=== PATIENT | female | born 1990 | race Caucasian/White ===

== ENCOUNTER 2021-07-08 00:36 | Day surgery (SDC) | payer BC ==
[2021-07-08] MEDS ORDERED: hydrALAZINE 20 MG/ML VIAL SLOW IVP PRN (00:56)
[2021-07-08] MEDS ORDERED: Lactated Ringer's 1,000 ML IV SCH ×2 (01:00)
[2021-07-08 01:01] VITALS: BMI 28.6
[2021-07-08 06:58] LABS: #Eosinphils 0.2 10x3/uL (0.0-0.5); #Monocytes 0.8 10x3/uL (0.0-1.1); #Neutrophils 13.7 10x3/uL (1.5-8.4); %Basophils 0.2 % (0.0-2.0); %Monocytes 4.3 % (0.0-10.0); %Neutrophils 77.8 % (40.0-75.0); Hemoglobin 11.9 g/dL (12.0-15.5); Mean Corpuscular HGB CONC 32.3 g/dL (32.0-36.0); Mean Corpuscular Hemoglobin 30.7 pg (27.0-33.0); Mean Corpuscular Volume 95.1 fl (81.6-98.3); Mean Platelet Volume 10.8 fl (7.4-10.4); Platelet Count 244 10x3/uL (150-450); RBC Distribution Width 13.8 % (11.5-14.5); Red Blood Cell (RBC) Count 3.87 10x6/uL (3.90-5.03); White Blood Cell (WBC) Count 17.7 10x3/uL (3.5-10.5)
[2021-07-08 07:22] LABS: ALT (SGPT) 11 U/L (8-55); AST (SGOT) 11 U/L (5-34); Alkaline Phosphatase 63 U/L (40-110); Anion Gap 11 mmol/L (10-20); BUN (Urea Nitrogen) 12 mg/dL (7.0-18.7); Bilirubin, Total 0.3 mg/dL (0.2-1.2); Calc. Creatinine Clearance 120 mL/min (70-130); Calcium 8.9 mg/dL (7.8-10.44); Carbon Dioxide 18 mmol/L (22-29); Chloride 113 mmol/L (98-107); Globulin 3.1 g/dL (2.4-3.5); Glucose 95 mg/dL (70-105); Potassium 4.4 mmol/L (3.5-5.1); Protein, Total 6.1 g/dL (6.0-8.3); Sodium 138 mmol/L (136-145)
== END 2021-07-08 07:50 | disposition home or self-care (01) ==
LOC: CSHLD/OP 00:36
PROVIDERS: ATTEND Obstetrics & Gynecology
DX: O99.891 Other specified diseases and conditions complicating pregnancy (principal); M54.5 Low back pain; Z3A.20 20 weeks gestation of pregnancy; Z79.899 Other long term (current) drug therapy; Z88.1 Allergy status to other antibiotic agents; Z88.2 Allergy status to sulfonamides; Z88.5 Allergy status to narcotic agent; Z88.8 Allergy status to other drugs, medicaments and biological substances
CPT/HCPCS: 36415; 80053; 85025; 96360; 96361; 99283

== ENCOUNTER 2021-10-31 14:53 | Day surgery (SDC) | payer BC ==
[2021-10-31 15:53] VITALS: BMI 33.3
[2021-10-31] MEDS ORDERED: hydrALAZINE 20 MG/ML VIAL SLOW IVP PRN (16:10)
[2021-10-31] MEDS ORDERED: Fioricet 325/50/40 mg Tablet PO PRN (16:17)
== END 2021-10-31 18:00 | disposition home or self-care (01) ==
LOC: CSHLD/OP 14:53
PROVIDERS: ATTEND Obstetrics & Gynecology
DX: O99.891 Other specified diseases and conditions complicating pregnancy (principal); R03.0 Elevated blood-pressure reading, without diagnosis of hypertension; O21.0 Mild hyperemesis gravidarum; Z3A.38 38 weeks gestation of pregnancy; Z88.1 Allergy status to other antibiotic agents; Z88.2 Allergy status to sulfonamides; Z88.5 Allergy status to narcotic agent; Z88.6 Allergy status to analgesic agent
CPT/HCPCS: 99282

== ENCOUNTER 2021-11-07 22:58 | Inpatient (IN) | payer BC ==
[2021-11-07 23:24] VITALS: BMI 34.0
[2021-11-08] MEDS ORDERED: hydrALAZINE 20 MG/ML VIAL SLOW IVP PRN ×2 (00:01→02:24)
[2021-11-08] MEDS ORDERED: Acetaminophen 500 MG TAB PO PRN (02:24)
[2021-11-08] MEDS ORDERED: Lidocaine 1% (PF) 30 ML VIAL SC PRN (02:24)
[2021-11-08] MEDS ORDERED: Misoprostol 200 MCG TAB PR PRN (02:24)
[2021-11-08] MEDS ORDERED: Ibuprofen 800 MG TAB PO PRN (02:24)
[2021-11-08] MEDS ORDERED: Methylergonovine 0.2 MG/ML VIAL IM PRN (02:24)
[2021-11-08] MEDS ORDERED: Carboprost 250 MCG/ML AMP IM PRN (02:24)
[2021-11-08] MEDS ORDERED: Ondansetron PF 4 MG/2 ML Vial IVP PRN ×2 (02:24→12:08)
[2021-11-08] MEDS ORDERED: NS w/ Oxytocin 30 units 500 ML IV SCH ×2 (03:30)
[2021-11-08] MEDS ORDERED: NS w/ Oxytocin 30 units 500 ML IVPB SCH (03:30)
[2021-11-08] MEDS ORDERED: Lactated Ringer's 1,000 ML IV SCH (03:30)
[2021-11-08] MEDS: Butorphanol Tartrate 1 MG/ML VIAL ONE ×2 (04:00→09:16)
[2021-11-08 04:12] LABS: Hemoglobin 13.4 g/dL (12.0-15.5); Mean Corpuscular HGB CONC 32.9 g/dL (32.0-36.0); Mean Corpuscular Hemoglobin 30.8 pg (27.0-33.0); Mean Corpuscular Volume 93.6 fl (81.6-98.3); Mean Platelet Volume 11.4 fl (7.4-10.4); Platelet Count 275 10x3/uL (150-450); RBC Distribution Width 14.3 % (11.5-14.5); Red Blood Cell (RBC) Count 4.35 10x6/uL (3.90-5.03); White Blood Cell (WBC) Count 22.3 10x3/uL (3.5-10.5)
[2021-11-08 04:51] LABS: Hep B Surf Ag Non-Reactive S/CO (NonReactive); Syphilis Antibody Nonreactive (Nonreactive); Syphilis Antibody Index 0.09 S/CO (<1.00 Non-Reactive)
[2021-11-08 05:11] LABS: HBSAg Index 0.17 S/CO (0-0.99)
[2021-11-08 06:40] LABS: SARS-CoV-2 NAA Rapid Test Not Detected (NotDetected)
[2021-11-08] MEDS ORDERED: Butorphanol Tartrate 1 MG/ML VIAL ONE (09:17)
[2021-11-08] MEDS ORDERED: Fentanyl 2 mcg/Bup 0.1% Cadd 100 ML ONE (11:21)
[2021-11-08] MEDS ORDERED: Fentanyl 100 MCG/2 ML VIAL ONE (11:33)
[2021-11-08] MEDS ORDERED: Naloxone HCl 0.4 mg/ml Vial IVP PRN ×2 (12:08)
[2021-11-08] MEDS ORDERED: diphenhydrAMINE 50 MG/ML VIAL IVP PRN (12:08)
[2021-11-08] MEDS ORDERED: Acetaminophen 325 MG TAB PO PRN (12:08)
[2021-11-08] MEDS ORDERED: Hydrocerin (Eucerin) Cream 120 gm Jar TOP PRN (12:08)
[2021-11-08] MEDS ORDERED: Lactated Ringer's 500 ML IV PRN (12:08)
[2021-11-08] MEDS ORDERED: ePHEDrine Sulfate 50 MG/10 ML VIAL SLOW IVP PRN (12:08)
[2021-11-08] MEDS ORDERED: Communication Order-Pharmacy FS SCH (12:15)
[2021-11-08] MEDS ORDERED: Fentanyl 2 mcg/Bupivacaine 0.1% Cassette 100 ML EPIDURAL SCH (12:15)
[2021-11-08] MEDS ORDERED: Calcium Carbonate 500 MG ChewTAB PO PRN (13:40)
[2021-11-08] MEDS ORDERED: Benzocaine-Menthol 82.5 ML CAN TOP PRN (15:55)
[2021-11-08] MEDS ORDERED: Boostrix 0.5 ML (Tdap) VIAL IM ONE (15:55)
[2021-11-08] MEDS ORDERED: Bisacodyl 10 MG SUPP PR PRN (15:55)
[2021-11-08] MEDS ORDERED: Lanolin Ointment 7 GM TUBE TOP PRN (15:55)
[2021-11-08] MEDS ORDERED: Preparation H Ointment 28 GM TUBE PR PRN (15:55)
[2021-11-08] MEDS ORDERED: Milk Of Magnesia 30 ML UDCUP PO PRN (15:55)
[2021-11-08] MEDS: Ibuprofen 600 MG TAB PO SCH ×2 (20:21→21:04)
[2021-11-08] MEDS: Ferrous Sulfate 325 MG TAB PO SCH (20:22)
[2021-11-08] MEDS: Docusate Calcium (SURFAK) 240 MG CAP PO SCH (21:04)
[2021-11-09] MEDS: Ibuprofen 600 MG TAB PO SCH ×4 (03:58→21:29)
[2021-11-09] MEDS: Docusate Calcium (SURFAK) 240 MG CAP PO SCH ×2 (10:47→21:29)
[2021-11-09] MEDS: Prenatal Vitamin 1 TAB PO SCH (10:47)
[2021-11-09] MEDS: Ferrous Sulfate 325 MG TAB PO SCH (17:25)
[2021-11-10 00:43] VITALS: TEMP 98
[2021-11-10] MEDS: Ibuprofen 600 MG TAB PO SCH ×2 (04:20→10:03)
[2021-11-10 07:44] VITALS: BP 107/65
[2021-11-10] MEDS: Ferrous Sulfate 325 MG TAB PO SCH (07:46)
[2021-11-10] MEDS: Prenatal Vitamin 1 TAB PO SCH (08:16)
[2021-11-10] MEDS: Docusate Calcium (SURFAK) 240 MG CAP PO SCH (08:16)
== END 2021-11-10 14:05 | disposition home or self-care (01) | DRG 807 ==
LOC: CSHLD/OP 22:58 → CSHLD 11-08 05:50 → CSHPP 11-08 20:19
PROVIDERS: ADMIT Obstetrics & Gynecology; ATTEND Obstetrics & Gynecology
PROC: 10E0XZZ Delivery of Products of Conception, External Approach (ICD-10-PCS; principal; 2021-11-08)
PROC: 0UQMXZZ Repair Vulva, External Approach (ICD-10-PCS; 2021-11-08)
DX: O99.354 Diseases of the nervous system complicating childbirth (principal); Z37.0 Single live birth; O70.0 First degree perineal laceration during delivery; G43.909 Migraine, unspecified, not intractable, without status migrainosus; Z3A.39 39 weeks gestation of pregnancy; O77.0 Labor and delivery complicated by meconium in amniotic fluid; Z98.51 Tubal ligation status; Z88.1 Allergy status to other antibiotic agents; Z88.5 Allergy status to narcotic agent; Z88.6 Allergy status to analgesic agent; Z88.8 Allergy status to other drugs, medicaments and biological substances
CPT/HCPCS: 36415; 51702; 85027; 86780; 86850; 86900; 86901; 87340; 99285; J0595; J2590; U0002